=== PATIENT | female | born 1945 | race American Indian/Alaskan Native ===

== ENCOUNTER 2017-08-24 13:21 | Emergency (ER) | payer MEDICARE ==
--- NOTE | 2017-08-24 13:40 | Emergency Department Report ---
ED CPR HPI - General Stated Complaint: CARDIAC ARREST Time Seen by Provider: 08/24/17 13:33 - History of Present Illness Initial Comments: This is patient transported to this facility in asystole. Medics state that her last known well time was perhaps 10-15 minutes prior to their arrival per family member. She was found apneic and in asystole. She was intubated. Standard ACLS protocols for asystole were deployed. There was no return of spontaneous circulation at any time or any signs of life. The patient arrived in asystole. MD Complaint: found unresponsive, other (asystole and apneic) -: minute(s) Place: home Bystander CPR Performed: No (not specifically reported) Initial Findings in the Field: systole ROSC in the Field: No Associated Injuries: No Treatments Prior to Arrival: intubation, epinephrine mgs #, atropine mgs #, sodium bicarbonate - Related Data Home Medications Medication Instructions Recorded Confirmed Last Taken Calcium Carbonate/Vitamin D3 1 each PO QDAY 02/11/14 02/18/17 1 Day Ago [Calcium 600-Vit D3 400 Tablet] ~02/17/17 Diltiazem HCl [Diltiazem 24Hr ER] 300 mg PO QDAY 02/11/14 02/18/17 1 Day Ago ~02/17/17 Simvastatin 40 mg PO QHS 02/11/14 02/18/17 1 Day Ago ~02/17/17 Insulin Glargine,Hum.rec.anlog 45 unit SQ QHS 02/19/17 02/19/17 1 Day Ago [Lantus] ~02/17/17 Insulin Lispro [HumaLOG VIAL] 10 units SQ TIDAC 02/19/17 02/19/17 Unknown Previous Rx's Medication Instructions Recorded Last Taken Type Arformoterol Nebu [Brovana Nebu] 15 mcg IH Q12HRT #120 ml 02/16/14 1 Day Ago Rx ~02/17/17 Budesonide [Pulmicort Respules] 0.5 mg IH Q12HRT #60 nebu 02/16/14 1 Day Ago Rx ~02/17/17 Ipratropium/Albuterol Sulfate 1 ampul IH QID 30 Days ampul.neb 02/16/14 1 Day Ago Rx [DUONEB *Not for PRN Use*] ~02/17/17 ALBUTEROL NEB's [Proventil 0.083% 2.5 mg IH Q6HRT PRN #1 nebu 02/21/17 Unknown Rx NEBS] Arformoterol Nebu [Brovana Nebu] 15 mcg IH Q12HRT #1 ml 02/21/17 Unknown Rx Budesonide [Pulmicort Respules] 0.5 mg IH Q12HRT #1 nebu 02/21/17 Unknown Rx Calcium Citrate/Vit D 315-250 1 each PO QDAY tablet 02/21/17 Unknown Rx [Citracal D 315Mg-250 Units] Ipratropium/Albuterol Sulfate 1 ampul IH Q6HRT #1 ampul.neb 02/21/17 Unknown Rx [DUONEB *Not for PRN Use*] Lisinopril/Hydrochlorothiazide 1 tab PO QDAY #30 tablet 02/21/17 Unknown Rx [Zestoretic 20-12.5 mg] Pantoprazole [Protonix] 40 mg PO QDAY #30 tablet 02/21/17 Unknown Rx Allergies Allergy/AdvReac Type Severity Reaction Status Date / Time No Known Allergies Allergy Unverified 02/11/14 10:13 ED Review of Systems ROS: Stated complaint: CARDIAC ARREST Other details as noted in HPI ED Past Medical Hx - Past Medical History Hx Hypertension: Yes Hx CVA: No Hx Heart Attack/AMI: Yes (cardiac stent placement October 2016) Hx Congestive Heart Failure: No Hx Diabetes: Yes Hx Deep Vein Thrombosis: No Hx Pulmonary Embolism: Yes (diagnosed October 2016) Hx GERD: No Hx Liver Disease: No Hx Renal Disease: No Hx Sickle Cell Disease: No Hx Arthritis: No Hx Headaches / Migraines: No Hx Seizures: No Hx Kidney Stones: No Hx Psychiatric Treatment: No Hx Asthma: No Hx COPD: Yes Hx Tuberculosis: No Hx Dementia: No Hx HIV: No Additional medical history: angina sleep apnea - Surgical History Hx Coronary Stent: Yes (October 2016) Hx Open Heart Surgery: No Hx Pacemaker: No Hx Internal Defibrillator: No Hx Cholecystectomy: No Hx Appendectomy: No Hx Breast Surgery: No Additional Surgical History: D & C - Social History Smoking Status: Former Smoker - Medications Home Medications: Home Medications Medication Instructions Recorded Confirmed Last Taken Type Calcium Carbonate/Vitamin D3 1 each PO QDAY 02/11/14 02/18/17 1 Day Ago History [Calcium 600-Vit D3 400 Tablet] ~02/17/17 Diltiazem HCl [Diltiazem 24Hr ER] 300 mg PO QDAY 02/11/14 02/18/17 1 Day Ago History ~02/17/17 Simvastatin 40 mg PO QHS 02/11/14 02/18/17 1 Day Ago History ~02/17/17 Arformoterol Nebu [Brovana Nebu] 15 mcg IH Q12HRT #120 ml 02/16/14 02/18/17 1 Day Ago Rx ~02/17/17 Budesonide [Pulmicort Respules] 0.5 mg IH Q12HRT #60 nebu 02/16/14 02/18/17 1 Day Ago Rx ~02/17/17 Ipratropium/Albuterol Sulfate 1 ampul IH QID 30 Days ampul.neb 02/16/14 1 Day Ago Rx [DUONEB *Not for PRN Use*] ~02/17/17 Insulin Glargine,Hum.rec.anlog 45 unit SQ QHS 02/19/17 02/19/17 1 Day Ago History [Lantus] ~02/17/17 Insulin Lispro [HumaLOG VIAL] 10 units SQ TIDAC 02/19/17 02/19/17 Unknown History ALBUTEROL NEB's [Proventil 0.083% 2.5 mg IH Q6HRT PRN #1 nebu 02/21/17 Unknown Rx NEBS] Arformoterol Nebu [Brovana Nebu] 15 mcg IH Q12HRT #1 ml 02/21/17 Unknown Rx Budesonide [Pulmicort Respules] 0.5 mg IH Q12HRT #1 nebu 02/21/17 Unknown Rx Calcium Citrate/Vit D 315-250 1 each PO QDAY tablet 02/21/17 Unknown Rx [Citracal D 315Mg-250 Units] Ipratropium/Albuterol Sulfate 1 ampul IH Q6HRT #1 ampul.neb 02/21/17 Unknown Rx [DUONEB *Not for PRN Use*] Lisinopril/Hydrochlorothiazide 1 tab PO QDAY #30 tablet 02/21/17 Unknown Rx [Zestoretic 20-12.5 mg] Pantoprazole [Protonix] 40 mg PO QDAY #30 tablet 02/21/17 Unknown Rx ED Physical Exam - General Limitations: Other General appearance: obese, other (no signs of life) - Head Head exam: Present: atraumatic - ENT ENT exam: Present: normal exam - Respiratory Respiratory exam: Present: other (breath sounds are present with Ambu bag assist ) - Cardiovascular Cardiovascular Exam: Present: other (asystole) - GI/Abdominal GI/Abdominal exam: Present: other (obese) - Extremities Exam Extremities exam: Present: other (atraumatic) - Back Exam Back exam: Present: other (surgical site costal area) - Neurological Exam Neurological exam: Present: other (GCS 3) - Psychiatric Psychiatric exam: Present: other - Skin Skin exam: Present: warm ED Course - Reevaluation(s) Reevaluation #1: Patient was pronounced in asystole dad on arrival. I counseled the patient's son. He tells me that the patient has had cancer since April. He states that they have been deliberating on the course of treatment until they decided on surgery last . The patient was in the hospital for about a week and discharged from [facility]. She was found unresponsive. 08/24/17 13:46 Critical care attestation.: If time is entered above; I have spent that time in minutes in the direct care of this critically ill patient, excluding procedure time. ED Disposition Clinical Impression: Cardiac arrest, History of lung cancer Disposition: DC-20 Is pt being admited?: No Does the pt Need Aspirin: No Condition: Stable Referrals: PRIMARY CARE, [Primary Care Provider] - 3-5 Days Time of Disposition: 13:47
== END 2017-08-24 17:42 ==
LOC: ED 13:21
DX: I46.9 Cardiac arrest, cause unspecified (principal); I10 Essential (primary) hypertension; E11.9 Type 2 diabetes mellitus without complications; J44.9 Chronic obstructive pulmonary disease, unspecified; I26.99 Other pulmonary embolism without acute cor pulmonale; Z98.890 Other specified postprocedural states; Z79.4 Long term (current) use of insulin
CPT/HCPCS: 92950; 99285